=== PATIENT | male | born 1960 | race Caucasian/White ===

== ENCOUNTER 2022-11-26 09:07 | Emergency (ER) | payer MEDICARE ==
[~2022-11-26] VITALS: Ht 190.5 cm; Wt 113.0 kg
[2022-11-26 09:11] VITALS: BP 192/99
[2022-11-26] MEDS ORDERED: CARB15DR91 LEFT EAR (10:47)
== END 2022-11-26 11:03 | disposition home or self-care (01) ==
LOC: ER 09:08
DX: H61.22 Impacted cerumen, left ear (principal)
CPT/HCPCS: 99282